=== PATIENT | male | born 1950 | race Caucasian/White ===

== ENCOUNTER 2021-04-20 08:17 | Emergency (ER) | payer MEDICARE ==
[2021-04-20] MEDS ORDERED: Adenosine 6 MG/2 ML SDV ONE ×2 (08:21)
[2021-04-20] MEDS: Ondansetron 4 MG/2 ML SDV IVPUSH ONE (08:49)
[2021-04-20] MEDS: Morphine 2 MG/ML SYRINGE IVPUSH PRN (08:49)
[2021-04-20] MEDS: Diltiazem 25 MG/5 ML SDV ONE (08:56)
[2021-04-20] MEDS ORDERED: Sodium Chloride 0.9% 1,000 ML IV ONE (08:56)
[2021-04-20] MEDS: Sodium Chloride 0.9% 10 ML Syringe FLUSH PRN (08:57)
--- NOTE | 2021-04-20 09:01 | EDM.PDOC ---
ED HPI GENERAL MEDICAL PROBLEM - General Chief Complaint: Chest Pain Stated Complaint: SVT Time Seen by Provider: 04/20/21 08:34 Source of Information: Reports: Patient, EMS History Limitations: Reports: No Limitations - History of Present Illness INITIAL COMMENTS - FREE TEXT/NARRATIVE: Patient brought via EMS from [place] after he complained of dizziness when getting out of be for day. EMS crew noted patient was in SVT. They were only able to get a measurable blood pressure once and patient was symptomatic. They attempted cardioversion. He returned to a more normal rhythm on 4th try. EMS crew notes patient said "on no, not this again" when he saw paddles, and said he had been through cardioversion process before. Patient stayed in NSR for around one minute and returned to SVT. Arrived to ER with rate of 210 and BP in 80s systolic. Adenosine 6mg was given, followed by a 12mg dose. Rate has currently slowed to 120s and patient feels improved. He denies any recent health changes/med changes. Did just recently move to [place]. - Related Data Allergies Allergy/AdvReac Type Severity Reaction Status Date / Time penicillin G Allergy Cannot Verified 04/20/21 08:54 Remember wool Allergy Cannot Verified 04/20/21 08:54 Remember Home Meds: Home Meds Acetaminophen [Tylenol Arthritis] 650 mg PO Q4HR PRN 04/20/21 [History] Albuterol [Proventil HFA] 2 puff INH Q4H PRN 04/20/21 [History] Digoxin 0.125 mg PO QAM 04/20/21 [History] Morphine Sulfate 15 mg PO Q4H PRN 04/20/21 [History] Morphine [MS Contin] 15 mg PO BID 04/20/21 [History] Oxyquinoline/Emollient [[place] Oint] 1 applic TOP BID 04/20/21 [History] fentaNYL [Duragesic] 75 mcg TD Q72H 04/20/21 [History] Past Medical History Cardiovascular History: Reports: Afib, Arrhythmia, High Cholesterol, [place] Respiratory History: Reports: COPD Genitourinary History: Reports: Other (See Below) (Renal mass/left nephrectomy) Musculoskeletal History: Reports: Osteoarthritis Oncologic (Cancer) History: Reports: Leukemia (CLL), Renal - Past Surgical History Cardiovascular Surgical History: Reports: AAA Repair Respiratory Surgical History: Reports: Other (See Below) (tracheal surgery) GI Surgical History: Reports: Appendectomy, Cholecystectomy, Other (See Below) (nephrectomy) Musculoskeletal Surgical History: Reports: Arthroscopic Knee, Shoulder Surgery, Other (See Below) (Left below knee amputation) - History Comment History Comment: Hx chronic pain and was hospice referral to [facility] for pain control. Social & Family History - Tobacco Use Tobacco Use Status *Q: Former Tobacco User - Alcohol Use Alcohol Use History: No - Recreational Drug Use Recreational Drug Use: No Drug Use in Last 12 Months: No ED ROS GENERAL - Review of Systems Review Of Systems: See Below Constitutional: Reports: Weakness (chronic), Decreased Appetite (chronic), Weight Loss (chronic). Denies: Fever, Chills HEENT: Reports: Other (no acute changes) Respiratory: Reports: Other (no acute changes) Cardiovascular: Reports: Lightheadedness, Palpitations GI/Abdominal: Reports: Other (no acute changes) : Reports: Other (no acute changes) Musculoskeletal: Reports: Other (chronic pain/diffuse) Skin: Reports: Other (thin easily torn skin) Neurological: Reports: Dizziness, Difficulty Walking, Weakness (chronic). Denies: Confusion, Headache, Trouble Speaking, Change in Speech Psychiatric: Reports: No Symptoms Hematologic/Lymphatic: Reports: Easy Bruising ED EXAM, GENERAL - Physical Exam Exam: See Below Exam Limited By: No Limitations General Appearance: Alert, Thin, Other (awake, tachycardic, uncomfortable) Eye Exam: Bilateral Eye: EOMI, PERRL Ears: Hearing Grossly Normal Nose: No: Nasal Deformity, Nasal Swelling, Nasal Drainage Throat/Mouth: Normal Lips, Normal Voice, No Airway Compromise Head: Atraumatic, Normocephalic Neck: Supple, Non-Tender, Full Range of Motion Respiratory/Chest: Lungs Clear, Decreased Breath Sounds (throughout). No: Crackles, Rales, Rhonchi, Wheezing Cardiovascular: Tachycardia GI/Abdominal: Soft, Non-Tender, No Distention (Male) Exam: Deferred Rectal (Males) Exam: Deferred Back Exam: No: Muscle Spasm Extremities: Slow Capillary Refill, Other (left below knee amputation). No: Increased Warmth, Mottled, Pallor, Redness Neurological: Alert, Oriented, Normal Cognition, Other (moves all 4s) Psychiatric: Normal Affect, Normal Mood Skin Exam: Warm, Dry, Ecchymosis (scattered small), Other (scattered small skin tears/healing and bandaged) Course - Vital Signs Last Recorded V/S: Last Vital Signs Temp Pulse 106 H 04/20/21 09:41 Resp BP Pulse Ox - Orders/Labs/Meds Orders: Active Orders 24 hr Category Date Time Status EKG Documentation Completion [RC] ASDIRECTED Care 04/20/21 08:35 Active Chest 1V Frontal [CR] Stat Exams 04/20/21 08:35 Taken UA W/MICROSCOPIC [URIN] Stat Lab 04/20/21 08:34 Ordered Morphine Med 04/20/21 08:45 Active 2 mg IVPUSH Q1H PRN Sodium Chloride 0.9% [Saline Flush] Med 04/20/21 08:55 Active 10 ml FLUSH ASDIRECTED PRN Saline Lock Insert [OM.PC] Routine Oth 04/20/21 08:55 Ordered EKG 12 Lead [EK] Stat Ther 04/20/21 08:34 Ordered Medication Orders Morphine Sulfate (Morphine 2 Mg/Ml Syringe) 2 mg IVPUSH Q1H PRN PRN Reason: Pain Last Admin: 04/20/21 08:49 Dose: 2 mg Documented by: KIMBER Sodium Chloride (Sodium Chloride 0.9% 10 Ml Syringe) 10 ml FLUSH ASDIRECTED PRN PRN Reason: Keep Vein Open Last Admin: 04/20/21 08:57 Dose: 10 ml Documented by: AURELIANO Labs: Laboratory Tests 04/20/21 04/20/21 04/20/21 Range/Units 08:33 08:33 08:33 WBC 40.7 H* (4.0-10.2) K/uL RBC 2.32 L (4.33-5.41) M/uL Hgb 8.8 L (13.1-16.8) g/dL Hct 27.8 L (39.0-49.0) % MCV 119.8 H (84.0-98.0) fL MCH 37.9 H (28.2-33.3) pg MCHC 31.7 (31.7-36.0) g/dL RDW 20.7 H (11.2-14.1) % Plt Count 238 (150-350) K/uL Add Manual Diff Yes Neutrophils % (Manual) 23 Band Neutrophils % 53 Lymphocytes % (Manual) 11 Monocytes % (Manual) 9 Metamyelocytes % 1 Blast Cells % 3 Immature Gran # 0.4070 Absolute Neutrophils 30.9320 Lymphocytes # (Manual) 4.4770 Monocytes # (Manual) 3.6630 Anisocytosis 1+ slight Elliptocytes Few D-Dimer, Quantitative 1150 H (0-400) ng/mL Sodium 140 (136-145) mmol/L Potassium 4.0 (3.5-5.1) mmol/L Chloride 105 (98-107) mmol/L Carbon Dioxide 23.5 (21.0-32.0) mmol/L Anion Gap 11.5 (7-15) meq/L BUN 15 (7-18) mg/dL Creatinine 1.29 H (0.51-1.17) mg/dL Est Cr Clr Drug Dosing TNP Estimated GFR (MDRD) 55 mL/min Glucose 95 (70-99) mg/dL Lactic Acid (0.4-2.0) mmol/L Calcium 7.3 L (8.5-10.1) mg/dL Magnesium 1.7 L (1.8-2.4) mg/dL Total Bilirubin 0.7 (0.2-1.0) mg/dL AST 19 (15-37) U/L ALT 23 (12-78) U/L Alkaline Phosphatase 72 (46-116) IU/L Troponin I High Sens 16 (<=76) ng/L NT-Pro-B Natriuret Pep 1736 H (0-125) pg/mL Total Protein 4.9 L (6.4-8.2) g/dL Albumin 1.9 L (3.4-5.0) g/dL Digoxin (0.90-2.00) ng/mL 04/20/21 04/20/21 Range/Units 08:33 08:33 WBC (4.0-10.2) K/uL RBC (4.33-5.41) M/uL Hgb (13.1-16.8) g/dL Hct (39.0-49.0) % MCV (84.0-98.0) fL MCH (28.2-33.3) pg MCHC (31.7-36.0) g/dL RDW (11.2-14.1) % Plt Count (150-350) K/uL Add Manual Diff Neutrophils % (Manual) Band Neutrophils % Lymphocytes % (Manual) Monocytes % (Manual) Metamyelocytes % Blast Cells % Immature Gran # Absolute Neutrophils Lymphocytes # (Manual) Monocytes # (Manual) Anisocytosis Elliptocytes D-Dimer, Quantitative (0-400) ng/mL Sodium (136-145) mmol/L Potassium (3.5-5.1) mmol/L Chloride (98-107) mmol/L Carbon Dioxide (21.0-32.0) mmol/L Anion Gap (7-15) meq/L BUN (7-18) mg/dL Creatinine (0.51-1.17) mg/dL Est Cr Clr Drug Dosing Estimated GFR (MDRD) mL/min Glucose (70-99) mg/dL Lactic Acid 4.6 H (0.4-2.0) mmol/L Calcium (8.5-10.1) mg/dL Magnesium (1.8-2.4) mg/dL Total Bilirubin (0.2-1.0) mg/dL AST (15-37) U/L ALT (12-78) U/L Alkaline Phosphatase (46-116) IU/L Troponin I High Sens (<=76) ng/L NT-Pro-B Natriuret Pep (0-125) pg/mL Total Protein (6.4-8.2) g/dL Albumin (3.4-5.0) g/dL Digoxin 0.44 L (0.90-2.00) ng/mL Meds: Medications Generic Name Dose Route Start Last Admin Trade Name Freq PRN Reason Stop Dose Admin Morphine Sulfate 2 mg 04/20/21 08:45 04/20/21 08:49 Morphine 2 Mg/Ml Syringe IVPUSH 2 mg Q1H PRN Administration Pain Sodium Chloride 10 ml 04/20/21 08:55 04/20/21 08:57 Sodium Chloride 0.9% 10 Ml Syringe FLUSH 10 ml ASDIRECTED PRN Administration Keep Vein Open Discontinued Medications Generic Name Dose Route Start Last Admin Trade Name Freq PRN Reason Stop Dose Admin Digoxin 250 mcg 04/20/21 09:26 04/20/21 09:41 Digoxin 500 Mcg/2 Ml Amp IVPUSH 04/20/21 09:27 250 mcg ONETIME ONE Administration Diltiazem HCl Confirm 04/20/21 08:21 04/20/21 08:56 Diltiazem 25 Mg/5 Ml Sdv Administered 04/20/21 08:22 Not Given Dose 25 mg .ROUTE .STK-MED ONE Sodium Chloride 1,000 mls @ 999 mls/hr 04/20/21 08:56 Normal Saline IV 04/20/21 09:56 .BOLUS ONE Magnesium Sulfate/Dextrose 1 100 mls @ 100 mls/hr 04/20/21 09:27 04/20/21 09:49 gm/ Premix IV 04/20/21 10:26 100 mls/hr ONETIME ONE Administration Morphine Sulfate 15 mg 04/20/21 09:22 04/20/21 09:30 Morphine 15 Mg Tab.Er PO 04/20/21 09:23 15 mg ONETIME ONE Administration Morphine Sulfate 6 mg 04/20/21 09:25 04/20/21 09:37 Morphine 10 Mg/Ml Sdv IVPUSH 04/20/21 09:26 6 mg ONETIME ONE Administration Ondansetron HCl 4 mg 04/20/21 08:46 04/20/21 08:49 Ondansetron 4 Mg/2 Ml Sdv IVPUSH 04/20/21 08:47 4 mg ONETIME ONE Administration - Re-Assessments/Exams Free Text/Narrative Re-Assessment/Exam: 04/20/21 11:06 SVT noted on monitor. Patient received 6mg Adenosine with no change. 12mg Adenosine changed rate from 210 down to 120s. Heart rate remained in 120s. Labs ordered. Chest xray showed no pneumothorax/focal consolidation. Records reviewed from [place]. No problem list noted. It was however noted that patient is DNR/DNI. He reports to us that Oncology estimates that he has about 5 month survival expectancy at this time. Med list showed patient is on Digoxin and a Dig level was added to labs. Code status reviewed with patient during patient interview after heart rate improved. He notified us that he has terminal cancer diagnosis (CLL and renal cancer) and does not wish to be resuscitated. He made it clear that he does not want further cardioversion attempts. Pt apparently just transferred to [place] with plans to pursue hospice care. Is on chronic narcotics due to chronic cancer related pain. Labs showed WBC 40K with hgb 8.8 DDimer 1150 Creatinine 1.39 Lactic 4.6 Calcium/total protein/albumin all low. Mag low at 1.7 Digoxin significantly low at 1.44. IV Digoxin and Magnesium ordered. ProBNP 1736 BP steadily in 80s/50s. Patient says this is where he has been running con sistently recently. Further investigation led to awareness that Hospice has not been able to formally evaluate patient due to [facility] not answering phone/unable to set up appointment for patient intake. [facility] contacted and came to ER to evaluate patient. Given the knowledge that patient has terminal cancer and wishes to be a no-code/desires hospice, no further intervention will be performed here in the ED. He did request pain medication during stay. Hospice will be seeing him again once he returns to [place] and will oversee pain medication and any further medication changes. Departure - Departure Time of Disposition: 11:19 Disposition: DC/Tfer to SNF 03 Condition: Fair Clinical Impression: SVT (supraventricular tachycardia), End of life care, Do not resuscitate - Discharge Information *PRESCRIPTION DRUG MONITORING PROGRAM REVIEWED*: Not Applicable *COPY OF PRESCRIPTION DRUG MONITORING REPORT IN PATIENT ZULLY: Not Applicable Forms: ED Department Discharge Additional Instructions: Hospice to continue assessment/intake evaluation/initiate orders and medication adjustments once patient is back at [place]. Patient is comfort care only. Do not resuscitate. Note that patient was subtherapeutic for Digoxin level and had low Magnesium noted during ER workup. He did receive IV replacement therapy for both of these. Recheck Digoxin level/adjust dose as needed if Hospice continues patient on that medication. Sepsis Event Note (ED) - Focused Exam Vital Signs: Vital Signs Pulse 04/20/21 09:41 106 H - My Orders Last 24 Hours: My Active Orders 04/20/21 08:34 UA W/MICROSCOPIC [URIN] Stat EKG 12 Lead [EK] Stat 04/20/21 08:35 EKG Documentation Completion [RC] ASDIRECTED Chest 1V Frontal [CR] Stat 04/20/21 08:45 Morphine 2 mg IVPUSH Q1H PRN 04/20/21 08:55 Sodium Chloride 0.9% [Saline Flush] 10 ml FLUSH ASDIRECTED PRN Saline Lock Insert [OM.PC] Routine - Assessment/Plan Last 24 Hours: My Active Orders 04/20/21 08:34 UA W/MICROSCOPIC [URIN] Stat EKG 12 Lead [EK] Stat 04/20/21 08:35 EKG Documentation Completion [RC] ASDIRECTED Chest 1V Frontal [CR] Stat 04/20/21 08:45 Morphine 2 mg IVPUSH Q1H PRN 04/20/21 08:55 Sodium Chloride 0.9% [Saline Flush] 10 ml FLUSH ASDIRECTED PRN Saline Lock Insert [OM.PC] Routine
[2021-04-20 09:06] LABS: ANION GAP 11.5 meq/L (7-15); CHLORIDE,CL 105 mmol/L (98-107); SODIUM,NA 140 mmol/L (136-145)
[2021-04-20] MEDS: Morphine 15 MG Tab.ER PO ONE ×2 (09:30→12:14)
[2021-04-20] MEDS: Morphine 10 MG/ML SDV IVPUSH ONE ×2 (09:37→12:13)
[2021-04-20] MEDS: Digoxin 500 MCG/2 ML Amp IVPUSH ONE (09:41)
== END 2021-04-20 12:20 ==
LOC: LL.ED 08:17
DX: I47.1 Supraventricular tachycardia (principal); J44.9 Chronic obstructive pulmonary disease, unspecified; I48.91 Unspecified atrial fibrillation; E78.00 Pure hypercholesterolemia, unspecified; I25.2 Old myocardial infarction; Z91.09 Other allergy status, other than to drugs and biological substances; Z87.891 Personal history of nicotine dependence; Z66 Do not resuscitate
CPT/HCPCS: 36415; 71045; 80053; 80162; 83605; 83735; 83880; 84484; 85025; 85379; 96365; 96375; 96376; 99285-25; A9270-GY; J0153; J1160; J2270; J2405; J3475